=== PATIENT | female | born 1945 | race American Indian/Alaskan Native ===

== ENCOUNTER 2021-11-08 09:59 | Inpatient (IN) | payer MEDICAID, OTHER ==
--- NOTE | 2021-11-08 10:44 | Emergency Department Report ---
ED Shortness of Breath HPI - General Chief Complaint: Dyspnea/Respdistress Stated Complaint: FEVER/SOB Time Seen by Provider: 11/08/21 10:27 Source: patient, family Mode of arrival: Ambulatory Limitations: Language Barrier - History of Present Illness Initial Comments: 76-year-old female with a past medical history of hypertension presents to the hospital complaining of shortness of breath since returning from [place] 1 week ago. Patient presents with her Upper Sorbian-speaking daughter who states that she notices that patient has significant dyspnea with weakness when climbing stairs. Patient having a mild amount of left upper chest pain. Patient denies infectious symptoms of cough, fever, and is fully vaccinated for COVID. Patient had an negative Covid test prior to traveling. Patient's temperature has been afebrile at home - Related Data Allergies Allergy/AdvReac Type Severity Reaction Status Date / Time No Known Allergies Allergy Unverified 11/08/21 10:10 ED Review of Systems ROS: Stated complaint: FEVER/SOB Other details as noted in HPI Comment: All other systems reviewed and negative ED Past Medical Hx - Past Medical History Previous Medical History?: Yes Hx Hypertension: Yes - Surgical History Past Surgical History?: No - Social History Smoking Status: Never Smoker Substance Use Type: Prescribed ED Physical Exam - General Limitations: Language Barrier - Other Other exam information: General: No acute distress Head: Atraumatic Eyes: normal appearance ENT: Moist mucous membranes Neck: Normal appearance, no midline tenderness Chest: Clear to auscultation bilaterally CV: Regular rate and rhythm Abdomen: Soft, normal bowel sounds, nontender, nondistended, no rebound or guarding Back: Normal inspection Extremity: Mild right leg swelling compared to the left with right calf tenderness Neuro: Alert O x 3, no facial asymmetry, speech clear, no gross motor sensory deficit Psych: Appropriate behavior Skin: No rash ED Course Vital Signs 11/08/21 11/08/21 11/08/21 10:10 10:12 12:07 Temperature 98.3 F 98.3 F Pulse Rate 79 73 76 Respiratory 20 28 H 19 Rate Blood Pressure 169/76 169/76 O2 Sat by Pulse 99 99 98 Oximetry 11/08/21 11/08/21 11/08/21 12:16 12:30 12:45 Temperature Pulse Rate 72 72 Respiratory 14 23 Rate Blood Pressure 162/76 135/66 O2 Sat by Pulse 97 97 99 Oximetry ED Medical Decision Making - Lab Data Result diagrams: 11/08/21 11:34 11/08/21 11:34 Lab Results 11/08/21 11/08/21 11/08/21 Range/Units 11:34 11:34 11:34 WBC 5.9 (4.5-11.0) K/mm3 RBC 4.44 (3.65-5.03) M/mm3 Hgb 11.8 (10.1-14.3) gm/dl Hct 36.8 (30.3-42.9) % MCV 83 (79-97) fl MCH 27 L (28-32) pg MCHC 32 (30-34) % RDW 14.3 (13.2-15.2) % Plt Count 181 (140-440) K/mm3 Lymph % (Auto) 35.9 H (13.4-35.0) % [place] % (Auto) 13.7 H (0.0-7.3) % Eos % (Auto) 2.1 (0.0-4.3) % Baso % (Auto) 1.0 (0.0-1.8) % Lymph # (Auto) 2.1 (1.2-5.4) K/mm3 [place] # (Auto) 0.8 (0.0-0.8) K/mm3 Eos # (Auto) 0.1 (0.0-0.4) K/mm3 Baso # (Auto) 0.1 (0.0-0.1) K/mm3 Seg Neutrophils % 47.3 (40.0-70.0) % Seg Neutrophils # 2.8 (1.8-7.7) K/mm3 PT 13.4 (12.2-14.9) Sec. INR 0.92 (0.87-1.13) APTT 27.3 (24.2-36.6) Sec. D-Dimer 7876.52 H (0-234) ng/mlDDU Sodium 137 (137-145) mmol/L Potassium 3.8 (3.6-5.0) mmol/L Chloride 103.9 (98-107) mmol/L Carbon Dioxide 20 L (22-30) mmol/L Anion Gap 17 mmol/L BUN 23 H (7-17) mg/dL Creatinine 1.0 (0.6-1.2) mg/dL Estimated GFR > 60 ml/min BUN/Creatinine Ratio 23 % Glucose 104 H (65-100) mg/dL Calcium 9.6 (8.4-10.2) mg/dL Total Bilirubin 0.20 (0.1-1.2) mg/dL AST 19 (5-40) units/L ALT 17 (7-56) units/L Alkaline Phosphatase 82 (35-129) units/L Troponin T < 0.010 (0.00-0.029) ng/mL NT-Pro-B Natriuret Pep (0-900) pg/mL Total Protein 7.4 (6.3-8.2) g/dL Albumin 4.2 (3.9-5) g/dL Albumin/Globulin Ratio 1.3 % // Range/Units 11:34 WBC (4.5-11.0) K/mm3 RBC (3.65-5.03) M/mm3 Hgb (10.1-14.3) gm/dl Hct (30.3-42.9) % MCV (79-97) fl MCH (28-32) pg MCHC (30-34) % RDW (13.2-15.2) % Plt Count (140-440) K/mm3 Lymph % (Auto) (13.4-35.0) % [place] % (Auto) (0.0-7.3) % Eos % (Auto) (0.0-4.3) % Baso % (Auto) (0.0-1.8) % Lymph # (Auto) (1.2-5.4) K/mm3 [place] # (Auto) (0.0-0.8) K/mm3 Eos # (Auto) (0.0-0.4) K/mm3 Baso # (Auto) (0.0-0.1) K/mm3 Seg Neutrophils % (40.0-70.0) % Seg Neutrophils # (1.8-7.7) K/mm3 PT (12.2-14.9) Sec. INR (0.87-1.13) APTT (24.2-36.6) Sec. D-Dimer (0-234) ng/mlDDU Sodium (137-145) mmol/L Potassium (3.6-5.0) mmol/L Chloride (98-107) mmol/L Carbon Dioxide (22-30) mmol/L Anion Gap mmol/L BUN (7-17) mg/dL Creatinine (0.6-1.2) mg/dL Estimated GFR ml/min BUN/Creatinine Ratio % Glucose (65-100) mg/dL Calcium (8.4-10.2) mg/dL Total Bilirubin (0.1-1.2) mg/dL AST (5-40) units/L ALT (7-56) units/L Alkaline Phosphatase (35-129) units/L Troponin T (0.00-0.029) ng/mL NT-Pro-B Natriuret Pep 83.85 (0-900) pg/mL Total Protein (6.3-8.2) g/dL Albumin (3.9-5) g/dL Albumin/Globulin Ratio % - EKG Data -: EKG Interpreted by Dc EKG shows normal: sinus rhythm, ST-T waves (no stemi. LVH) Rate: normal (71) - Radiology Data Radiology results: report reviewed CHEST 2 VIEWS INDICATION / CLINICAL INFORMATION: sob STUDY TIME: 1125 COMPARISON: None available. FINDINGS: SUPPORT DEVICES: None. HEART / MEDIASTINUM: No significant abnormality. LUNGS / PLEURA: Slight elevation of the left hemidiaphragm is seen with slight left basilar atelectasis. No definite pneumonic infiltrates are seen. No pleural effusions are noted. No pneumothorax. ADDITIONAL FINDINGS: No significant additional findings. DUPLEX DOPPLER LOWER EXTREMITY VEINS, BILATERAL INDICATION / CLINICAL INFORMATION: right leg swelling, recent travel TECHNIQUE: Duplex doppler imaging was performed through the veins of both lower extremities using venous compression and other maneuvers. COMPARISON: None available. FINDINGS: RIGHT COMMON FEMORAL VEIN: Negative. RIGHT FEMORAL VEIN: Negative. RIGHT POPLITEAL VEIN: Nonocclusive DVT RIGHT CALF VEINS: Negative. LEFT COMMON FEMORAL VEIN: Nearly occlusive DVT LEFT FEMORAL VEIN: Negative. LEFT POPLITEAL VEIN: Nonocclusive DVT LEFT CALF VEINS: Negative. ADDITIONAL FINDINGS: Thrombosis is noted in the upper portion of the greater saphenous vein near the common femoral vein junction. IMPRESSION: Bilateral DVT CTA CHEST WITH CONTRAST INDICATION / CLINICAL INFORMATION: dyspnea on exertion, b/l dvt. TECHNIQUE: Axial CT images were obtained through the chest after injection of IV contrast. 3 plane MIP and/or 3D reconstructions were produced. All CT scans at this location are performed using CT dose reduction for ALARA by means of automated exposure control. COMPARISON: None available. FINDINGS: Filling defect within the distal left lower lung pulmonary arteries, axial image 69. Additional filling defects within the branches of the right main pulmonary artery into the right middle lobe. Several filling defects in segmental peripheral right lower lung pulmonary arteries. Mild increased interstitial prominence and densities in bilateral lungs. No focal area of consolidation. Heart size appears normal. Osteopenia with degenerative changes seen throughout spine IMPRESSION: 1. Bilateral PTE's 2. Mild interstitial prominence in bilateral lungs - Medical Decision Making 76-year-old female presents to the hospital with dyspnea on exertion with recent trip from [facility]. ED work-up reveals bilateral lower extremity DVTs and bilateral pulmonary emboli. No signs of hypoxia at rest. Patient received Lovenox and admitted to the hospital service for further treatment. Critical Care Time: No Critical care attestation.: If time is entered above; I have spent that time in minutes in the direct care of this critically ill patient, excluding procedure time. ED Disposition Clinical Impression: DVT, bilateral lower limbs, Pulmonary embolism, bilateral, Dyspnea Disposition: ADMITTED INPATIENT Is pt being admited?: Yes Condition: Stable Time of Disposition: 14:08 (DR Buchanan)
[2021-11-08] MEDS ORDERED: ENOXAPARIN 100 MG/1 ML INJ SUB-Q ONE (11:40)
--- NOTE | 2021-11-08 11:45 | Vascular Lab Report ---
DUPLEX DOPPLER LOWER EXTREMITY VEINS, BILATERAL INDICATION / CLINICAL INFORMATION: right leg swelling, recent travel TECHNIQUE: Duplex doppler imaging was performed through the veins of both lower extremities using rodríguez ous compression and other maneuvers. COMPARISON: None available. FINDINGS: RIGHT COMMON FEMORAL VEIN: Negative. RIGHT FEMORAL VEIN: Negative. RIGHT POPLITEAL VEIN: Nonocclusive DVT RIGHT CALF VEINS: Negative. LEFT COMMON FEMORAL VEIN: Nearly occlusive DVT LEFT FEMORAL VEIN: Negative. LEFT POPLITEAL VEIN: Nonocclusive DVT LEFT CALF VEINS: Negative. ADDITIONAL FINDINGS: Thrombosis is noted in the upper portion of the greater saphenous vein near the common femoral vein junction. IMPRESSION: Bilateral DVT CRITICAL RESULT: Time of Discovery (TRENCH PIPE LAYER HELPER/CDT): 1035 Time of Communication (TRENCH PIPE LAYER HELPER/CDT): 1038 Licensed Practitioner Receiving Report: Dr. Daniella Celaya Read-Back Performed: Not applicable. Signer Name: Wellington Terry MD Signed: 11/08/2021 11:40 AM Workstation Name: [id number]
--- NOTE | 2021-11-08 11:51 | XRay Report ---
CHEST 2 VIEWS INDICATION / CLINICAL INFORMATION: sob STUDY TIME: 1125 COMPARISON: None available. FINDINGS: SUPPORT DEVICES: None. HEART / MEDIASTINUM: No significant abnormality. LUNGS / PLEURA: Slight elevation of the left hemidiaphragm is seen with slight left basilar atelectas is. No definite pneumonic infiltrates are seen. No pleural effusions are noted. No pneumothorax. ADDITIONAL FINDINGS: No significant additional findings. Signer Name: Wellington Terry MD Signed: 11/08/2021 11:46 AM Workstation Name: [id number]
[2021-11-08 12:09] LABS: Basophils # (Auto) 0.1 K/mm3 (0.0-0.1); Eosinophils # (Auto) 0.1 K/mm3 (0.0-0.4); Eosinophils % (Auto) 2.1 % (0.0-4.3); Lymphocytes # (Auto) 2.1 K/mm3 (1.2-5.4); Lymphocytes % (Auto) 35.9 % (13.4-35.0); Monocytes # (Auto) 0.8 K/mm3 (0.0-0.8); Monocytes % (Auto) 13.7 % (0.0-7.3)
[2021-11-08 12:17] LABS: INR 0.92 (0.87-1.13)
[2021-11-08 12:18] LABS: Partial Thromboplastin Time 27.3 Sec. (24.2-36.6)
[2021-11-08 12:33] LABS: Alanine Aminotransferase 17 units/L (7-56); Albumin 4.2 g/dL (3.9-5); BUN/Creatinine Ratio 23; Blood Urea Nitrogen 23 mg/dL (7-17); Calcium 9.6 mg/dL (8.4-10.2); Hemolysis Index 9
[2021-11-08 12:38] LABS: Hematocrit 36.8 % (30.3-42.9); Hemoglobin 11.8 gm/dl (10.1-14.3); Mean Corpuscular HGB Conc 32 % (30-34); Mean Corpuscular Volume 83 fl (79-97); Platelet Count 181 K/mm3 (140-440); Red Blood Count 4.44 M/mm3 (3.65-5.03); Red Cell Distribution Width 14.3 % (13.2-15.2)
--- NOTE | 2021-11-08 14:10 | Cat Scan Report ---
CTA CHEST WITH CONTRAST INDICATION / CLINICAL INFORMATION: dyspnea on exertion, b/l dvt. TECHNIQUE: Axial CT images were obtained through the chest after injection of IV contrast. 3 plane [place] P and/or 3D reconstructions were produced. All CT scans at this location are performed using CT dose reduction for ALARA by means of automated exposure control. COMPARISON: None available. FINDINGS: Filling defect within the distal left lower lung pulmonary arteries, axial image 69. Additional filli ng defects within the branches of the right main pulmonary artery into the right middle lobe. Several filling defects in segmental peripheral right lower lung pulmonary arteries. Mild increased intersti tial prominence and densities in bilateral lungs. No focal area of consolidation. Heart size appears normal. Osteopenia with degenerative changes seen throughout spine IMPRESSION: 1. Bilateral PTE's 2. Mild interstitial prominence in bilateral lungs CRITICAL RESULT: Time of Discovery (COORDINATOR OF GENETIC SERVICES/CDT): 104 Time of Communication (COORDINATOR OF GENETIC SERVICES/CDT): 104 Licensed Practitioner Receiving Report: Yomi Read-Back Performed: Yes. Signer Name: Ganesh Guaman MD Signed: 11/08/2021 2:05 PM Workstation Name: [id number]
[2021-11-08] MEDS ORDERED: MORPHINE 2 MG/1 ML INJ IV PRN (17:17)
[2021-11-08] MEDS ORDERED: HYDROmorphone 1 MG/1 ML INJ IV PRN (17:17)
[2021-11-08] MEDS ORDERED: ONDANSETRON 4 MG/2 ML INJ IV PRN (17:17)
[2021-11-08] MEDS ORDERED: ACETAMINOPHEN 325 MG TAB PO PRN (17:17)
[2021-11-08] MEDS ORDERED: METOCLOPRAMIDE 10 MG/2 ML INJ IV PRN (17:17)
[2021-11-08] MEDS ORDERED: HEPARIN 10,000 UNITS/10 ML VIAL IV PRN (17:20)
[2021-11-08] MEDS ORDERED: HEPARIN 10,000 UNITS/10 ML VIAL IV ONE (17:20)
[2021-11-08] MEDS: oxyCODONE /ACETAMINOPHEN 5-325MG TAB PO PRN (18:01)
[2021-11-08] MEDS: HEPARIN/ 0.45% NACL DRIP 25,000 UNIT/500 ML BAG IV SCH (18:11)
[2021-11-08] MEDS: SODIUM CHLORIDE 0.9% 1000 ML 1,000 ML IV SCH (18:28)
--- NOTE | 2021-11-09 00:09 | History and Physical Report ---
History of Present Illness Date of examination: 11/08/21 Date of admission: 11/08/21 17:17 Chief complaint: Shortness of breath for 1 week History of present illness: 76-year-old -[place]ian female with history of hypertension, who cannot speak Frisian was recently traveling from [facility] 1 week ago. Patient is present with significant dyspnea and weakness when climbing stairs. Patient also has mild chest pain. Patient also having lower extremity discomfort. Patient had a negative Covid test prior to travel. Patient was sitting for long hours from [facility] to [place]. No previous history of pulmonary embolism or DVT. - Past Medical History --Previous Medical History?: Yes --Hypertension: Yes - Surgical History --Past Surgical History?: No - Social History --Smoking Status: Never Smoker --Substance Use Type: Prescribed -Family history -- HTN -Review of Systems -ROS: Constitutional no weight loss or weight gain no fever or chills HEENT no sore throat no post nasal drip no diplopia Neck no neck stiffness no lymph gland enlargement Chest and lungs shortness of breath and bilateral lower extremity pain present CVS no chest pain no diaphoresis no palpitations GI no nausea no vomiting no diarrhea Genitourinary system no dysuria no flank pain Musculoskeletal system bilateral lower extremity pain present MANAGER MANAGEMENT no syncope no seizures Skin no rash no itching Psychiatric no depression no homicidal or suicidal tendencies Hematologic no lymphedema or bruising Endocrine no polydipsia no polyuria no cold intolerance no heat intolerance Medications and Allergies Allergies Allergy/AdvReac Type Severity Reaction Status Date / Time No Known Allergies Allergy Unverified 11/08/21 10:10 Active Meds: Active Medications Acetaminophen (Acetaminophen 325 Mg Tab) 650 mg PO Q4H PRN PRN Reason: Pain MILD(1-3)/Fever >100.5/CURTIS Heparin Sodium (Porcine) (Heparin 10,000 Units/10 Ml Vial) 3,100 unit 40 uni t/kg (3100 unit) IV Q6H PRN PRN Reason: Anti-Xa Assay < 0.1 units/ml Hydromorphone HCl (Hydromorphone 1 Mg/1 Ml Inj) 0.5 mg IV Q3H PRN PRN Reason: Pain , Severe (7-10) Sodium Chloride (Nacl 0.9% 1000 Ml) 1,000 mls @ 100 mls/hr IV DIRECT EULA Last Admin: 11/08/21 18:28 Dose: 100 mls/hr Heparin Sodium/Sodium Chloride (Heparin/ 0.45% Nacl-25,000 Unit/500 Ml) 25,000 unit in 500 mls @ 23 mls/hr IV TITR [facility]; Protocol Last Admin: 11/08/21 18:11 Dose: 1,150 units/hr, 23 mls/hr Metoclopramide HCl (Metoclopramide 10 Mg/2 Ml Inj) 10 mg IV Q6H PRN PRN Reason: Nausea And Vomiting Morphine Sulfate (Morphine 2 Mg/1 Ml Inj) 2 mg IV Q4H PRN PRN Reason: Pain, Moderate (4-6) Ondansetron HCl (Ondansetron 4 Mg/2 Ml Inj) 4 mg IV Q8H PRN PRN Reason: Nausea And Vomiting Oxycodone/Acetaminophen (Oxycodone /Acetaminophen 5-325mg Tab) 1 tab PO Q6H PRN PRN Reason: Pain, Moderate (4-6) Last Admin: 11/08/21 18:01 Dose: 1 tab Sodium Chloride (Sodium Chloride 0.9% 10 Ml Flush Syringe) 10 ml IV BID [facility] Last Admin: 11/08/21 22:49 Dose: 10 ml Sodium Chloride (Sodium Chloride 0.9% 10 Ml Flush Syringe) 10 ml IV PRN PRN PRN Reason: LINE FLUSH Exam - Constitutional Vitals: Temp Pulse Resp BP Pulse Ox 98.3 F 69 19 132/59 94 11/08/21 10:12 11/08/21 21:31 11/08/21 21:31 11/08/21 21:31 11/08/21 21:31 General appearance: Present: no acute distress, well-nourished - EENT Eyes: Present: PERRL ENT: hearing intact, clear oral mucosa - Neck Neck: Present: supple, normal ROM - Respiratory Respiratory effort: normal Respiratory: bilateral: CTA - Cardiovascular Heart rate: 98 Rhythm: regular Heart Sounds: Present: S1 & S2. Absent: rub, click - Extremities Extremities: no ischemia, pulses intact, pulses symmetrical, No edema Peripheral Pulses: within normal limits - Abdominal General gastrointestinal: Present: soft, non-tender, non-distended, normal bowel sounds Female genitourinary: Present: normal - Integumentary Integumentary: Present: clear, warm, dry - Musculoskeletal Musculoskeletal: gait normal, strength equal bilaterally - Psychiatric Psychiatric: appropriate mood/affect, intact judgment & insight - Neurologic Neurologic: CNII-XII intact, moves all extremities - Allied Health Allied health notes reviewed: nursing, case management HEART Score - HEART Score History: Slightly suspicious Age: > 65 Risk factors: 1-2 risk factors Troponin: Troponin T < 0.010 ng/mL (0.00-0.029) 11/08/21 16:21 Troponin: < normal limit - Critical Actions Critical Actions: 0-3 pts:0.9-1.7%risk of adverse cardiac event.Candidate for discharge Results - Labs CBC & Chem 7: 11/09/21 02:21 11/09/21 02:21 Labs: Laboratory Last Values WBC 5.9 K/mm3 (4.5-11.0) 11/08/21 11:34 RBC 4.44 M/mm3 (3.65-5.03) 11/08/21 11:34 Hgb 11.8 gm/dl (10.1-14.3) 11/08/21 11:34 Hct 36.8 % (30.3-42.9) 11/08/21 11:34 MCV 83 fl (79-97) 11/08/21 11:34 MCH 27 pg (28-32) L 11/08/21 11:34 MCHC 32 % (30-34) 11/08/21 11:34 RDW 14.3 % (13.2-15.2) 11/08/21 11:34 Plt Count 181 K/mm3 (140-440) 11/08/21 11:34 Lymph % (Auto) 35.9 % (13.4-35.0) H 11/08/21 11:34 [place] % (Auto) 13.7 % (0.0-7.3) H 11/08/21 11:34 Eos % (Auto) 2.1 % (0.0-4.3) 11/08/21 11:34 Baso % (Auto) 1.0 % (0.0-1.8) 11/08/21 11:34 Lymph # (Auto) 2.1 K/mm3 (1.2-5.4) 11/08/21 11:34 [place] # (Auto) 0.8 K/mm3 (0.0-0.8) 11/08/21 11:34 Eos # (Auto) 0.1 K/mm3 (0.0-0.4) 11/08/21 11:34 Baso # (Auto) 0.1 K/mm3 (0.0-0.1) 11/08/21 11:34 Seg Neutrophils % 47.3 % (40.0-70.0) 11/08/21 11:34 Seg Neutrophils # 2.8 K/mm3 (1.8-7.7) 11/08/21 11:34 PT 13.4 Sec. (12.2-14.9) 11/08/21 11:34 INR 0.92 (0.87-1.13) 11/08/21 11:34 APTT 27.3 Sec. (24.2-36.6) 11/08/21 11:34 D-Dimer 7876.52 ng/mlDDU (0-234) H 11/08/21 11:34 Sodium 137 mmol/L (137-145) 11/08/21 11:34 Potassium 3.8 mmol/L (3.6-5.0) 11/08/21 11:34 Chloride 103.9 mmol/L (98-107) 11/08/21 11:34 Carbon Dioxide 20 mmol/L (22-30) L 11/08/21 11:34 Anion Gap 17 mmol/L 11/08/21 11:34 BUN 23 mg/dL (7-17) H 11/08/21 11:34 Creatinine 1.0 mg/dL (0.6-1.2) 11/08/21 11:34 Estimated GFR > 60 ml/min 11/08/21 11:34 BUN/Creatinine Ratio 23 % 11/08/21 11:34 Glucose 104 mg/dL (65-100) H 11/08/21 11:34 Calcium 9.6 mg/dL (8.4-10.2) 11/08/21 11:34 Total Bilirubin 0.20 mg/dL (0.1-1.2) 11/08/21 11:34 AST 19 units/L (5-40) 11/08/21 11:34 ALT 17 units/L (7-56) 11/08/21 11:34 Alkaline Phosphatase 82 units/L (35-129) 11/08/21 11:34 Troponin T < 0.010 ng/mL (0.00-0.029) 11/08/21 16:21 NT-Pro-B Natriuret Pep 83.85 pg/mL (0-900) 11/08/21 11:34 Total Protein 7.4 g/dL (6.3-8.2) 11/08/21 11:34 Albumin 4.2 g/dL (3.9-5) 11/08/21 11:34 Albumin/Globulin Ratio 1.3 % 11/08/21 11:34 Short CBC 11/08/21 11/09/21 Range/Units 11:34 02:21 WBC 5.9 6.3 (4.5-11.0) K/mm3 Hgb 11.8 11.5 (10.1-14.3) gm/dl Hct 36.8 35.4 (30.3-42.9) % Plt Count 181 202 (140-440) K/mm3 BMP 11/08/21 11/09/21 11:34 02:21 Sodium 137 138 Potassium 3.8 4.5 Chloride 103.9 101.1 Carbon Dioxide 20 L 23 BUN 23 H 21 H Creatinine 1.0 1.0 Glucose 104 H 149 H Calcium 9.6 9.6 Cardiac Enzymes 11/08/21 11/08/21 11/08/21 Range/Units 11:34 13:59 16:21 Troponin T < 0.010 < 0.010 < 0.010 (0.00-0.029) ng/mL Liver Function 11/08/21 11/09/21 Range/Units 11:34 02:21 Total Bilirubin 0.20 0.20 (0.1-1.2) mg/dL AST 19 17 (5-40) units/L ALT 17 15 (7-56) units/L Alkaline Phosphatase 82 77 (35-129) units/L Albumin 4.2 3.8 L (3.9-5) g/dL - Imaging and Cardiology EKG: report reviewed Imaging and Cardiology: Chest x-ray No significant radiation findings Duplex scan lower extremities-venous Thrombosis is noted of the upper portion of the greater saphenous vein near the common femoral vein junction Bilateral DVT Chest CTA Findings filling defect in the distal left lower lung pulmonary arteries, axial image 69. Additional filling defects within the branches of the right main pulmonary artery into the right middle lobe. Severe filling defects in segmental periphery of the right lower lung pulmonary arteries. Mild increased interstitial prominence and densities in bilateral lungs. No focal area of disc consolidation. Right ventricular drain was not mentioned by the radiology. Final impression Bilateral PEs Mild interstitial prominence in bilateral lungs. Assessment and Plan Advance Directives: Yes (Full code) VTE prophylaxis?: Chemical Plan of care discussed with patient/family: Yes - Patient Problems (1) Pulmonary embolism, bilateral Current Visit: Yes Status: Acute Plan to address problem: Bilateral pulmonary embolism involving peripheral pulmonary branches. No main pulmonary artery involvement Patient may not be a candidate for EKOS Vascular surgery/IR consulted for second opinion IV heparin as per protocol for now To be transitioned to Eliquis (2) DVT, bilateral lower limbs Current Visit: Yes Status: Acute Plan to address problem: Bilateral lower extremity DVT especially in upper saphenous vein region near the femoral vein IV heparin as per protocol. We will bridged to Eliquis. Vascular/IR consulted (3) Elevated d-dimer Current Visit: Yes Status: Acute Plan to address problem: D-dimer in 7000 Consistent with PE and DVT (4) Hypertension Current Visit: Yes Status: Chronic Qualifiers: Hypertension type: primary hypertension Qualified Code(s): I10 - Essential (primary) hypertension Plan to address problem: Continue antihypertensives and adjust medications as necessary (5) DVT prophylaxis Current Visit: Yes Status: Acute Plan to address problem: On heparin drip and GI prophylaxis (6) Advance care planning Current Visit: Yes Status: Acute Plan to address problem: Discussed with daughter was at the bedside about disease education care plan plan discussed. Diagnosis discussed. Prognosis discussed. Patient is full code. Patient acknowledges understanding and agreement with care plan along with the daughter. +30 minutes.
[2021-11-09 02:25] LABS: Basophils # (Auto) 0.1 K/mm3 (0.0-0.1); Basophils % (Auto) 1.1 % (0.0-1.8); Eosinophils # (Auto) 0.2 K/mm3 (0.0-0.4); Eosinophils % (Auto) 2.6 % (0.0-4.3); Hematocrit 35.4 % (30.3-42.9); Hemoglobin 11.5 gm/dl (10.1-14.3); Lymphocytes # (Auto) 2.8 K/mm3 (1.2-5.4); Lymphocytes % (Auto) 44.4 % (13.4-35.0); Mean Corpuscular HGB Conc 32 % (30-34); Mean Corpuscular Volume 82 fl (79-97); Monocytes # (Auto) 0.7 K/mm3 (0.0-0.8); Monocytes % (Auto) 11.5 % (0.0-7.3); Platelet Count 202 K/mm3 (140-440); Red Blood Count 4.31 M/mm3 (3.65-5.03); Red Cell Distribution Width 14.9 % (13.2-15.2)
[2021-11-09 02:48] LABS: Alanine Aminotransferase 15 units/L (7-56); Albumin 3.8 g/dL (3.9-5); BUN/Creatinine Ratio 21; Blood Urea Nitrogen 21 mg/dL (7-17); Calcium 9.6 mg/dL (8.4-10.2); Hemolysis Index 4
[2021-11-09 04:31] LABS: INR 1.05 (0.87-1.13)
[2021-11-09 05:08] LABS: Partial Thromboplastin Time 229.7 Sec. (24.2-36.6)
[2021-11-09] MEDS: SODIUM CHLORIDE 0.9% 1000 ML 1,000 ML IV SCH ×2 (05:46→16:36)
[2021-11-09] MEDS: HEPARIN/ 0.45% NACL DRIP 25,000 UNIT/500 ML BAG IV SCH ×2 (05:49→22:46)
--- NOTE | 2021-11-09 09:34 | Electrocardiograph Report ---
[facility] Test Date: 2021-11-08 Test Time: 12:37:15 Pat Name: MARC ROBB Department: Room: A483 Gender: F Terrestrial Ecologist: JULIAN : 1945 Requested By: STEVE SOMMERS Order Number: [id number] Reading MD: Dorothy Garrido Measurements Intervals [place] Rate: 71 P: 59 MD: 151 QRS: 3 QRSD: 75 T: 48 QT: 409 QTc: 445 Interpretive Statements Sinus rhythm Probable left atrial enlargement Probable left ventricular hypertrophy No previous ECG available for comparison Electronically Signed On 11-09-2021 9:34:28 EDT by Dorothy Garrido
--- NOTE | 2021-11-09 13:19 | Event Note ---
Date: 11/09/21 76 year old female who presents with thromboembolic events with PE and LLE DVT. LLE has a L CFV and L popliteal vein DVT. PE demonstrates some segmental PE. BNP and troponin are negative. RV/LV ratio is 1.1, but the main pulmonary artery measures 3.4 cm compatible with chronic pulmonary hypertension. Suspect RV/LV ratio is chronic given the small amount of PE with findings of chronic pulmonary hypertension. Recommend anticoagulation. Will evaluate tomorrow to assess symptoms of the left leg to see if patient would benefit from thrombectomy.
--- NOTE | 2021-11-09 19:09 | Progress Note ---
Assessment and Plan Assessment and plan: Bilateral lower extremity venous Doppler ;right popliteal vein nonocclusive DVT left popliteal vein nonocclusive DVT thrombosis is noted in the upper portion of the greater saphenous vein near the common femoral vein junction impression bilateral DVT Chest CTA; Findings filling defect in the distal left lower lung pulmonary arteries, axial image 69. Additional filling defects within the branches of the right main pulmonary artery into the right middle lobe. Severe filling defects in segmental periphery of the right lower lung pulmonary arteries. Mild increased interstitial prominence and densities in bilateral lungs. No focal area of disc consolidation., Right ventricular drain was not mentioned by the radiology. Final impression: Bilateral PEs -- Pulmonary embolism, bilateral Current Visit: Yes Status: Acute Bilateral pulmonary embolism involving peripheral pulmonary branches. No main pulmonary artery involvement Vascular evaluated the patient, no intervention at this point Continue IV heparin per ,, transition to Eliquis when medically stable Patient has no hypoxia, follow echocardiogram for LV and RV function ejection fraction --Bilateral lower extremity DVT: Current Visit: Yes Status: Acute Bilateral lower extremity DVT especially in upper saphenous vein region near the femoral vein Continue IV heparin per protocol, transition to Eliquis when patient is more stable Vascular evaluated the patient, no intervention at this point ==Elevated d-dimer; Current Visit: Yes Status: Acute D-dimer in 7000/bilateral PE bilateral DVT -- Hypertension Current Visit: Yes Status: Chronic Continue antihypertensives and adjust medications as necessary --DVT prophylaxis Current Visit: Yes Status: Acute Patient is already on heparin drip and GI prophylaxis --Advance care planning Current Visit: Yes Status: Acute Plan to address problem: Discussed with daughter was at the bedside 11/08/2021 /about disease education care plan plan discussed. Diagnosis discussed. Prognosis discussed. Patient is full code. Patient acknowledges understanding and agreement with care plan along with the daughter. +30 minutes. We will closely monitor the patient and adjust management as needed Plan of care reviewed with the patient and her nurse Monitor Tech recommendations noted and appreciated History Interval history: I have seen and examined the patient at the bedside Patient's chart and medications reviewed Patient feels slightly better mild shortness of breath intermittent Denies chest pain Vital signs reviewed Patient is on heparin drip Not on supplemental oxygen Hospitalist Physical - Constitutional Vitals: Temp Pulse Resp BP Pulse Ox 99.0 F 104 H 18 146/75 99 11/09/21 16:29 11/09/21 17:00 11/09/21 16:29 11/09/21 16:29 11/09/21 17:00 General appearance: Present: no acute distress, well-nourished - EENT Eyes: Present: PERRL, EOM intact - Neck Neck: Present: supple, normal ROM - Respiratory Respiratory effort: normal Respiratory: bilateral: diminished, rhonchi, negative: rales, wheezing - Cardiovascular Rhythm: regular Heart Sounds: Present: S1 & S2 - Extremities Extremities: no ischemia, abnormal (Left lower extremity swelling/DVT) - Abdominal General gastrointestinal: soft, non-tender, non-distended, normal bowel sounds - Integumentary Integumentary: Present: clear, warm, erythema - Psychiatric Psychiatric: appropriate mood/affect, cooperative - Neurologic Neurologic: moves all extremities HEART Score - HEART Score Age: > 65 Risk factors: 1-2 risk factors Troponin: Troponin T < 0.010 ng/mL (0.00-0.029) 11/08/21 16:21 Troponin: < normal limit - Critical Actions Critical Actions: 0-3 pts:0.9-1.7%risk of adverse cardiac event.Candidate for discharge Results - Labs CBC & Chem 7: 11/09/21 02:21 11/09/21 02:21 Labs: Laboratory Last Values WBC 6.3 K/mm3 (4.5-11.0) 11/09/21 02:21 RBC 4.31 M/mm3 (3.65-5.03) 11/09/21 02:21 Hgb 11.5 gm/dl (10.1-14.3) 11/09/21 02:21 Hct 35.4 % (30.3-42.9) 11/09/21 02:21 MCV 82 fl (79-97) 11/09/21 02:21 MCH 27 pg (28-32) L 11/09/21 02:21 MCHC 32 % (30-34) 11/09/21 02:21 RDW 14.9 % (13.2-15.2) 11/09/21 02:21 Plt Count 202 K/mm3 (140-440) 11/09/21 02:21 Lymph % (Auto) 44.4 % (13.4-35.0) H 11/09/21 02:21 [place] % (Auto) 11.5 % (0.0-7.3) H 11/09/21 02:21 Eos % (Auto) 2.6 % (0.0-4.3) 11/09/21 02:21 Baso % (Auto) 1.1 % (0.0-1.8) 11/09/21 02:21 Lymph # (Auto) 2.8 K/mm3 (1.2-5.4) 11/09/21 02:21 [place] # (Auto) 0.7 K/mm3 (0.0-0.8) 11/09/21 02:21 Eos # (Auto) 0.2 K/mm3 (0.0-0.4) 11/09/21 02:21 Baso # (Auto) 0.1 K/mm3 (0.0-0.1) 11/09/21 02:21 Seg Neutrophils % 40.4 % (40.0-70.0) 11/09/21 02:21 Seg Neutrophils # 2.6 K/mm3 (1.8-7.7) 11/09/21 02:21 PT 14.9 Sec. (12.2-14.9) 11/09/21 01:16 INR 1.05 (0.87-1.13) 11/09/21 01:16 APTT 229.7 Sec. (24.2-36.6) H* 11/09/21 01:16 D-Dimer 7876.52 ng/mlDDU (0-234) H 11/08/21 11:34 Heparin Anti-Xa Level 1.12 U.I./ml (0.3-0.7) H 11/09/21 10:48 Sodium 138 mmol/L (137-145) 11/09/21 02:21 Potassium 4.5 mmol/L (3.6-5.0) 11/09/21 02:21 Chloride 101.1 mmol/L (98-107) 11/09/21 02:21 Carbon Dioxide 23 mmol/L (22-30) 11/09/21 02:21 Anion Gap 18 mmol/L 11/09/21 02:21 BUN 21 mg/dL (7-17) H 11/09/21 02:21 Creatinine 1.0 mg/dL (0.6-1.2) 11/09/21 02:21 Estimated GFR > 60 ml/min 11/09/21 02:21 BUN/Creatinine Ratio 21 % 11/09/21 02:21 Glucose 149 mg/dL (65-100) H 11/09/21 02:21 POC Glucose 121 mg/dL (70-105) H 11/09/21 08:02 Calcium 9.6 mg/dL (8.4-10.2) 11/09/21 02:21 Total Bilirubin 0.20 mg/dL (0.1-1.2) 11/09/21 02:21 AST 17 units/L (5-40) 11/09/21 02:21 ALT 15 units/L (7-56) 11/09/21 02:21 Alkaline Phosphatase 77 units/L (35-129) 11/09/21 02:21 Troponin T < 0.010 ng/mL (0.00-0.029) 11/08/21 16:21 NT-Pro-B Natriuret Pep 83.85 pg/mL (0-900) 11/08/21 11:34 Total Protein 7.2 g/dL (6.3-8.2) 11/09/21 02:21 Albumin 3.8 g/dL (3.9-5) L 11/09/21 02:21 Albumin/Globulin Ratio 1.1 % 11/09/21 02:21 Mehta/IV: Voiding Method External Female Catheter Active Medications - Current Medications Current Medications: Generic Name Dose Route Start Last Admin Trade Name Freq PRN Reason Stop Dose Admin Acetaminophen 650 mg 11/08/21 17:17 Acetaminophen 325 Mg Tab PO Q4H PRN Pain MILD(1-3)/Fever >100.5/CURTIS Heparin Sodium (Porcine) 3,100 unit 11/08/21 17:20 Heparin 10,000 Units/10 Ml Vial 40 unit/kg (3100 unit) IV Q6H PRN Anti-Xa Assay < 0.1 units/ml Hydromorphone HCl 0.5 mg 11/08/21 17:17 Hydromorphone 1 Mg/1 Ml Inj IV Q3H PRN Pain , Severe (7-10) Sodium Chloride 1,000 mls @ 100 mls/hr 11/08/21 17:30 11/09/21 16:36 Nacl 0.9% 1000 Ml IV 100 mls/hr DIRECT EULA Administration Heparin Sodium/Sodium Chloride 25,000 unit in 500 mls @ 23 mls/hr 11/08/21 18:00 11/09/21 14:48 Heparin/ 0.45% Nacl-25,000 Unit/500 Ml IV 1,000 units/hr TITR EULA 20 mls/hr Titration Protocol 1,150 UNITS/HR Metoclopramide HCl 10 mg 11/08/21 17:17 Metoclopramide 10 Mg/2 Ml Inj IV Q6H PRN Nausea And Vomiting Morphine Sulfate 2 mg 11/08/21 17:17 Morphine 2 Mg/1 Ml Inj IV Q4H PRN Pain, Moderate (4-6) Ondansetron HCl 4 mg 11/08/21 17:17 Ondansetron 4 Mg/2 Ml Inj IV Q8H PRN Nausea And Vomiting Oxycodone/Acetaminophen 1 tab 11/08/21 17:17 11/08/21 18:01 Oxycodone /Acetaminophen 5-325mg Tab PO 1 tab Q6H PRN Administration Pain, Moderate (4-6) Sodium Chloride 10 ml 11/08/21 22:00 11/09/21 12:29 Sodium Chloride 0.9% 10 Ml Flush Syringe IV 10 ml BID EULA Administration Sodium Chloride 10 ml 11/08/21 17:17 Sodium Chloride 0.9% 10 Ml Flush Syringe IV PRN PRN LINE FLUSH
[2021-11-09] MEDS: oxyCODONE /ACETAMINOPHEN 5-325MG TAB PO PRN (21:56)
[2021-11-10] MEDS: SODIUM CHLORIDE 0.9% 1000 ML 1,000 ML IV SCH ×2 (02:50→13:11)
[2021-11-10 05:13] LABS: Hematocrit 33.7 % (30.3-42.9); Hemoglobin 10.7 gm/dl (10.1-14.3)
--- NOTE | 2021-11-10 09:19 | Progress Note ---
Assessment and Plan Assessment and plan: Bilateral lower extremity venous Doppler ;right popliteal vein nonocclusive DVT left popliteal vein nonocclusive DVT thrombosis is noted in the upper portion of the greater saphenous vein near the common femoral vein junction impression bilateral DVT Chest CTA; Findings filling defect in the distal left lower lung pulmonary arteries, axial image 69. Additional filling defects within the branches of the right main pulmonary artery into the right middle lobe. Severe filling defects in segmental periphery of the right lower lung pulmonary arteries. Mild increased interstitial prominence and densities in bilateral lungs. No focal area of disc consolidation., Right ventricular drain was not mentioned by the radiology. Final impression: Bilateral PEs -- Pulmonary embolism, bilateral Current Visit: Yes Status: Acute Bilateral pulmonary embolism involving peripheral pulmonary branches. No main pulmonary artery involvement Vascular evaluated the patient, no intervention at this point Continue IV heparin per ,, transition to Eliquis when medically stable Patient has no hypoxia, follow echocardiogram for LV and RV function ejection fraction --Bilateral lower extremity DVT: Current Visit: Yes Status: Acute Bilateral lower extremity DVT especially in upper saphenous vein region near the femoral vein Continue IV heparin per protocol, transition to Eliquis when patient is more stable Vascular evaluated the patient, no intervention at this point ==Elevated d-dimer; Current Visit: Yes Status: Acute D-dimer in 7000/bilateral PE bilateral DVT -- Hypertension Current Visit: Yes Status: Chronic Continue antihypertensives and adjust medications as necessary --DVT prophylaxis Current Visit: Yes Status: Acute Patient is already on heparin drip and GI prophylaxis --Advance care planning Current Visit: Yes Status: Acute Plan to address problem: Discussed with daughter was at the bedside 11/08/2021 /about disease education care plan plan discussed. Diagnosis discussed. Prognosis discussed. Patient is full code. Patient acknowledges understanding and agreement with care plan along with the daughter. +30 minutes. We will closely monitor the patient and adjust management as needed Plan of care reviewed with the patient and her nurse Substation Wireman recommendations noted and appreciated History Interval history: I have seen and examined the patient at the bedside Patient's chart and medications reviewed No new events reported by the nursing Vital signs stable Hospitalist Physical - Constitutional Vitals: Temp Pulse Resp BP Pulse Ox 98.3 F 81 16 152/86 96 11/10/21 08:22 11/10/21 08:22 11/10/21 08:22 11/10/21 08:22 11/10/21 08:22 General appearance: Present: no acute distress, well-nourished - EENT Eyes: Present: PERRL, EOM intact - Neck Neck: Present: supple, normal ROM - Respiratory Respiratory effort: normal Respiratory: bilateral: diminished, rhonchi, negative: rales, wheezing - Cardiovascular Rhythm: regular Heart Sounds: Present: S1 & S2 - Extremities Extremities: no ischemia, No edema - Abdominal General gastrointestinal: soft, non-tender, non-distended, normal bowel sounds - Integumentary Integumentary: Present: clear, warm - Psychiatric Psychiatric: appropriate mood/affect, cooperative - Neurologic Neurologic: moves all extremities HEART Score - HEART Score Age: > 65 Risk factors: 1-2 risk factors Troponin: Troponin T < 0.010 ng/mL (0.00-0.029) 11/08/21 16:21 Troponin: < normal limit - Critical Actions Critical Actions: 0-3 pts:0.9-1.7%risk of adverse cardiac event.Candidate for discharge Results - Labs CBC & Chem 7: 11/11/21 15:04 11/11/21 15:04 Labs: Laboratory Last Values WBC 6.3 K/mm3 (4.5-11.0) 11/09/21 02:21 RBC 4.31 M/mm3 (3.65-5.03) 11/09/21 02:21 Hgb 10.7 gm/dl (10.1-14.3) 11/10/21 04:45 Hct 33.7 % (30.3-42.9) 11/10/21 04:45 MCV 82 fl (79-97) 11/09/21 02:21 MCH 27 pg (28-32) L 11/09/21 02:21 MCHC 32 % (30-34) 11/09/21 02:21 RDW 14.9 % (13.2-15.2) 11/09/21 02:21 Plt Count 212 K/mm3 (140-440) 11/10/21 04:45 Lymph % (Auto) 44.4 % (13.4-35.0) H 11/09/21 02:21 [place] % (Auto) 11.5 % (0.0-7.3) H 11/09/21 02:21 Eos % (Auto) 2.6 % (0.0-4.3) 11/09/21 02:21 Baso % (Auto) 1.1 % (0.0-1.8) 11/09/21 02:21 Lymph # (Auto) 2.8 K/mm3 (1.2-5.4) 11/09/21 02:21 [place] # (Auto) 0.7 K/mm3 (0.0-0.8) 11/09/21 02:21 Eos # (Auto) 0.2 K/mm3 (0.0-0.4) 11/09/21 02:21 Baso # (Auto) 0.1 K/mm3 (0.0-0.1) 11/09/21 02:21 Seg Neutrophils % 40.4 % (40.0-70.0) 11/09/21 02:21 Seg Neutrophils # 2.6 K/mm3 (1.8-7.7) 11/09/21 02:21 PT 14.9 Sec. (12.2-14.9) 11/09/21 01:16 INR 1.05 (0.87-1.13) 11/09/21 01:16 APTT 229.7 Sec. (24.2-36.6) H* 11/09/21 01:16 D-Dimer 7876.52 ng/mlDDU (0-234) H 11/08/21 11:34 Heparin Anti-Xa Level 0.69 U.I./ml (0.3-0.7) 11/09/21 18:40 Sodium 138 mmol/L (137-145) 11/09/21 02:21 Potassium 4.5 mmol/L (3.6-5.0) 11/09/21 02:21 Chloride 101.1 mmol/L (98-107) 11/09/21 02:21 Carbon Dioxide 23 mmol/L (22-30) 11/09/21 02:21 Anion Gap 18 mmol/L 11/09/21 02:21 BUN 21 mg/dL (7-17) H 11/09/21 02:21 Creatinine 1.0 mg/dL (0.6-1.2) 11/09/21 02:21 Estimated GFR > 60 ml/min 11/09/21 02:21 BUN/Creatinine Ratio 21 % 11/09/21 02:21 Glucose 149 mg/dL (65-100) H 11/09/21 02:21 POC Glucose 121 mg/dL (70-105) H 11/09/21 08:02 Calcium 9.6 mg/dL (8.4-10.2) 11/09/21 02:21 Total Bilirubin 0.20 mg/dL (0.1-1.2) 11/09/21 02:21 AST 17 units/L (5-40) 11/09/21 02:21 ALT 15 units/L (7-56) 11/09/21 02:21 Alkaline Phosphatase 77 units/L (35-129) 11/09/21 02:21 Troponin T < 0.010 ng/mL (0.00-0.029) 11/08/21 16:21 NT-Pro-B Natriuret Pep 83.85 pg/mL (0-900) 11/08/21 11:34 Total Protein 7.2 g/dL (6.3-8.2) 11/09/21 02:21 Albumin 3.8 g/dL (3.9-5) L 11/09/21 02:21 Albumin/Globulin Ratio 1.1 % 11/09/21 02:21 Mehta/IV: Voiding Method External Female Catheter Active Medications - Current Medications Current Medications: Generic Name Dose Route Start Last Admin Trade Name Freq PRN Reason Stop Dose Admin Acetaminophen 650 mg 11/08/21 17:17 Acetaminophen 325 Mg Tab PO Q4H PRN Pain MILD(1-3)/Fever >100.5/CURTIS Heparin Sodium (Porcine) 3,100 unit 11/08/21 17:20 Heparin 10,000 Units/10 Ml Vial 40 unit/kg (3100 unit) IV Q6H PRN Anti-Xa Assay < 0.1 units/ml Hydromorphone HCl 0.5 mg 11/08/21 17:17 Hydromorphone 1 Mg/1 Ml Inj IV Q3H PRN Pain , Severe (7-10) Sodium Chloride 1,000 mls @ 100 mls/hr 11/08/21 17:30 11/10/21 02:50 Nacl 0.9% 1000 Ml IV 100 mls/hr DIRECT EULA Administration Heparin Sodium/Sodium Chloride 25,000 unit in 500 mls @ 23 mls/hr 11/08/21 18:00 11/09/21 22:46 Heparin/ 0.45% Nacl-25,000 Unit/500 Ml IV 1,000 units/hr TITR EULA 20 mls/hr Administration Protocol 1,150 UNITS/HR Metoclopramide HCl 10 mg 11/08/21 17:17 Metoclopramide 10 Mg/2 Ml Inj IV Q6H PRN Nausea And Vomiting Morphine Sulfate 2 mg 11/08/21 17:17 Morphine 2 Mg/1 Ml Inj IV Q4H PRN Pain, Moderate (4-6) Ondansetron HCl 4 mg 11/08/21 17:17 Ondansetron 4 Mg/2 Ml Inj IV Q8H PRN Nausea And Vomiting Oxycodone/Acetaminophen 1 tab 11/08/21 17:17 11/09/21 21:56 Oxycodone /Acetaminophen 5-325mg Tab PO 1 tab Q6H PRN Administration Pain, Moderate (4-6) Sodium Chloride 10 ml 11/08/21 22:00 11/10/21 02:51 Sodium Chloride 0.9% 10 Ml Flush Syringe IV 10 ml BID EULA Administration Sodium Chloride 10 ml 11/08/21 17:17 Sodium Chloride 0.9% 10 Ml Flush Syringe IV PRN PRN LINE FLUSH
--- NOTE | 2021-11-10 12:42 | Consultation ---
History of Present Illness - Reason for Consult Consult date: 11/10/21 PE, DVT Requesting physician: MEGHAN BROWN - History of Present Illness 76-year-old -Thai female with history of hypertension, limited Georgian was recently traveling from [facility] 1 week ago. Patient is present with significant dyspnea and weakness when climbing stairs. Patient also has mild chest pain. Patient also having lower extremity discomfort. Patient had a negative Covid test prior to travel. Patient was sitting for long hours from [facility] to [place]. No previous history of pulmonary embolism or DVT. Vascular consulted for pulmonary embolism. Discussed with daughter at bedside who provided translation with mother. She is currently without shortness of breath or chest pain. She has no lower extremity discomfort at this time. She has chronic left leg swelling which has been occurring for greater than 1 year. Reviewed ultrasound which demonstrated likely acute popliteal vein thrombus, but chronic left common femoral vein thrombus as the left common femoral vein thrombus was quite echogenic. This is consistent with a history of left leg swelling for greater than 1 year. Patient likely had thromboembolic event due to traveling. Given underlying left common femoral vein thrombus, may need prophylactic anticoagulation for life after acute anticoagulation treatment. History of ulcers of the left leg. In [place], they do not ultrasound legs for blood clots per her daughter, so history is limited. Past Medical History Previous Medical History?: Yes Hypertension: Yes Surgical History Past Surgical History?: No Social History Smoking Status: Never Smoker Substance Use Type: Prescribed Family history HTN ROS: Constitutional no weight loss or weight gain no fever or chills HEENT no sore throat no post nasal drip no diplopia Neck no neck stiffness no lymph gland enlargement CVS no chest pain no diaphoresis no palpitations GI no nausea no vomiting no diarrhea Genitourinary system no dysuria no flank pain Musculoskeletal within normal limits. Cardiovascular within normal limits. Pulmonary within normal limits. MANAGER DISCOVERY no syncope no seizures Skin no rash no itching Psychiatric no depression no homicidal or suicidal tendencies Hematologic no lymphedema or bruising Endocrine no polydipsia no polyuria no cold intolerance no heat intolerance Medications and Allergies Allergies Allergy/AdvReac Type Severity Reaction Status Date / Time No Known Allergies Allergy Unverified 11/08/21 10:10 Active Meds: Active Medications Acetaminophen (Acetaminophen 325 Mg Tab) 650 mg PO Q4H PRN PRN Reason: Pain MILD(1-3)/Fever >100.5/CURTIS Heparin Sodium (Porcine) (Heparin 10,000 Units/10 Ml Vial) 3,100 unit 40 unit/kg (3100 unit) IV Q6H PRN PRN Reason: Anti-Xa Assay < 0.1 units/ml Hydromorphone HCl (Hydromorphone 1 Mg/1 Ml Inj) 0.5 mg IV Q3H PRN PRN Reason: Pain , Severe (7-10) Sodium Chloride (Nacl 0.9% 1000 Ml) 1,000 mls @ 100 mls/hr IV DIRECT EULA Last Admin: 11/10/21 02:50 Dose: 100 mls/hr Heparin Sodium/Sodium Chloride (Heparin/ 0.45% Nacl-25,000 Unit/500 Ml) 25,000 unit in 500 mls @ 23 mls/hr IV TITR EULA; Protocol Last Admin: 11/09/21 22:46 Dose: 1,000 units/hr, 20 mls/hr Metoclopramide HCl (Metoclopramide 10 Mg/2 Ml Inj) 10 mg IV Q6H PRN PRN Reason: Nausea And Vomiting Morphine Sulfate (Morphine 2 Mg/1 Ml Inj) 2 mg IV Q4H PRN PRN Reason: Pain, Moderate (4-6) Ondansetron HCl (Ondansetron 4 Mg/2 Ml Inj) 4 mg IV Q8H PRN PRN Reason: Nausea And Vomiting Oxycodone/Acetaminophen (Oxycodone /Acetaminophen 5-325mg Tab) 1 tab PO Q6H PRN PRN Reason: Pain, Moderate (4-6) Last Admin: 11/09/21 21:56 Dose: 1 tab Sodium Chloride (Sodium Chloride 0.9% 10 Ml Flush Syringe) 10 ml IV BID [facility] Last Admin: 11/10/21 10:15 Dose: 10 ml Sodium Chloride (Sodium Chloride 0.9% 10 Ml Flush Syringe) 10 ml IV PRN PRN PRN Reason: LINE FLUSH Exam - Constitutional Vitals: Temp Pulse Resp BP Pulse Ox 98.3 F 67 16 152/86 98 11/10/21 08:22 11/10/21 09:00 11/10/21 08:22 11/10/21 08:22 11/10/21 11:50 General appearance: Present: no acute distress - EENT Eyes: Present: EOM intact ENT: hearing intact - Neck Neck: Present: supple - Respiratory Respiratory effort: normal - Extremities Extremities: normal temperature, normal color Extremity abnormal: edema (2+ left lower extremity edema, chronic per family) Peripheral Pulses: within normal limits (Palpable pedal pulse) - Abdominal General gastrointestinal: Present: soft, non-tender - Psychiatric Psychiatric: appropriate mood/affect, cooperative Results - Labs CBC & Chem 7: 11/10/21 04:45 11/09/21 02:21 Assessment and Plan 76-year-old female who presents with thromboembolic events. The pulmonary artery thrombus burden is low, troponin and BNP are negative. No need for pulmonary artery intervention. Patient is on room air and doing well. Patient has bilateral lower extremity DVTs with history of chronic left lower extremity swelling and sonography findings compatible with left chronic common femoral vein thrombus with more acute popliteal vein thrombosis. Recommend anticoagulation for at least 3 months, and afterwards likely prophylactic anticoagulation for life. Recommend transition from heparin to DOAC. JILLIAN hose for per comfort as needed.
[2021-11-10] MEDS: HEPARIN/ 0.45% NACL DRIP 25,000 UNIT/500 ML BAG IV SCH (22:13)
[2021-11-11] MEDS: SODIUM CHLORIDE 0.9% 1000 ML 1,000 ML IV SCH (05:00)
[2021-11-11] MEDS: APIXABAN 5 MG TAB PO SCH ×2 (10:47→21:11)
[2021-11-11 11:00] LABS: INR 0.95 (0.87-1.13)
[2021-11-11 11:19] LABS: Partial Thromboplastin Time 70.4 Sec. (24.2-36.6)
[2021-11-11 15:55] LABS: Hematocrit 34.9 % (30.3-42.9); Hemoglobin 11.3 gm/dl (10.1-14.3); Mean Corpuscular HGB Conc 32 % (30-34); Mean Corpuscular Volume 83 fl (79-97); Platelet Count 228 K/mm3 (140-440); Red Blood Count 4.23 M/mm3 (3.65-5.03); Red Cell Distribution Width 14.7 % (13.2-15.2)
--- NOTE | 2021-11-11 20:21 | Progress Note ---
Assessment and Plan Assessment and plan: Bilateral lower extremity venous Doppler ;right popliteal vein nonocclusive DVT left popliteal vein nonocclusive DVT thrombosis is noted in the upper portion of the greater saphenous vein near the common femoral vein junction impression bilateral DVT Chest CTA; Findings filling defect in the distal left lower lung pulmonary arteries, axial image 69. Additional filling defects within the branches of the right main pulmonary artery into the right middle lobe. Severe filling defects in segmental periphery of the right lower lung pulmonary arteries. Mild increased interstitial prominence and densities in bilateral lungs. No focal area of disc consolidation., Right ventricular drain was not mentioned by the radiology. Final impression: Bilateral PEs -- Pulmonary embolism, bilateral Current Visit: Yes Status: Acute Bilateral pulmonary embolism involving peripheral pulmonary branches. No main pulmonary artery involvement Vascular evaluated the patient, no intervention at this point Continue IV heparin per ,, transition to Eliquis when medically stable Patient has no hypoxia, follow echocardiogram for LV and RV function ejection fraction --Bilateral lower extremity DVT: Current Visit: Yes Status: Acute Bilateral lower extremity DVT especially in upper saphenous vein region near the femoral vein Continue IV heparin per protocol, transition to Eliquis when patient is more stable Vascular evaluated the patient, no intervention at this point ==Elevated d-dimer; Current Visit: Yes Status: Acute D-dimer in 7000/bilateral PE bilateral DVT -- Hypertension Current Visit: Yes Status: Chronic Continue antihypertensives and adjust medications as necessary --DVT prophylaxis Current Visit: Yes Status: Acute Patient is already on heparin drip and GI prophylaxis --Advance care planning Current Visit: Yes Status: Acute Plan to address problem: Discussed with daughter was at the bedside 11/08/2021 /about disease education care plan plan discussed. Diagnosis discussed. Prognosis discussed. Patient is full code. Patient acknowledges understanding and agreement with care plan along with the daughter. +30 minutes. We will closely monitor the patient and adjust management as needed Plan of care reviewed with the patient and her nurse Title Closer recommendations noted and appreciated Brief history and daily hospital course: 76-year-old female patient with significant past medical history of hypertension not on any medications was recently traveling 1 week ago was admitted through emergency room with worsening shortness of breath weakness while climbing the stairs as well as mild chest discomfort and pain patient was initially evaluated in the ED Noted to have bilateral PE and left lower extremity DVT patient was started on heparin drip, evaluated by vascular , no intervention needed , I transitioned to Eliquis today. Disposition; DC on Eliquis in 1 to 2 days if stable . History Interval history: I have seen and examined the patient at the bedside Patient's chart and medications reviewed No new events reported by the nursing staff Patient has no new complaints Vital signs reviewed Hospitalist Physical - Constitutional Vitals: Temp Pulse Resp BP Pulse Ox 98.4 F 69 12 136/66 98 11/11/21 19:15 11/11/21 19:15 11/11/21 19:15 11/11/21 19:15 11/11/21 19:15 General appearance: Present: no acute distress, well-nourished - EENT Eyes: Present: PERRL, EOM intact - Neck Neck: Present: supple, normal ROM - Respiratory Respiratory effort: normal Respiratory: bilateral: diminished, rhonchi, negative: rales, wheezing - Cardiovascular Rhythm: regular Heart Sounds: Present: S1 & S2 - Extremities Extremities: no ischemia Extremity abnormal: edema (Trace) - Abdominal General gastrointestinal: soft, non-tender, non-distended, normal bowel sounds - Integumentary Integumentary: Present: clear, warm - Psychiatric Psychiatric: appropriate mood/affect, cooperative - Neurologic Neurologic: CNII-XII intact, moves all extremities HEART Score - HEART Score Age: > 65 Risk factors: 1-2 risk factors Troponin: Troponin T < 0.010 ng/mL (0.00-0.029) 11/08/21 16:21 Troponin: < normal limit - Critical Actions Critical Actions: 0-3 pts:0.9-1.7%risk of adverse cardiac event.Candidate for discharge Results - Labs CBC & Chem 7: 11/11/21 15:04 11/11/21 15:04 Labs: Laboratory Last Values WBC 4.2 K/mm3 (4.5-11.0) L 11/11/21 15:04 RBC 4.23 M/mm3 (3.65-5.03) 11/11/21 15:04 Hgb 11.3 gm/dl (10.1-14.3) 11/11/21 15:04 Hct 34.9 % (30.3-42.9) 11/11/21 15:04 MCV 83 fl (79-97) 11/11/21 15:04 MCH 27 pg (28-32) L 11/11/21 15:04 MCHC 32 % (30-34) 11/11/21 15:04 RDW 14.7 % (13.2-15.2) 11/11/21 15:04 Plt Count 228 K/mm3 (140-440) 11/11/21 15:04 Lymph % (Auto) 44.4 % (13.4-35.0) H 11/09/21 02:21 Navarro % (Auto) 11.5 % (0.0-7.3) H 11/09/21 02:21 Eos % (Auto) 2.6 % (0.0-4.3) 11/09/21 02:21 Baso % (Auto) 1.1 % (0.0-1.8) 11/09/21 02:21 Lymph # (Auto) 2.8 K/mm3 (1.2-5.4) 11/09/21 02:21 Navarro # (Auto) 0.7 K/mm3 (0.0-0.8) 11/09/21 02:21 Eos # (Auto) 0.2 K/mm3 (0.0-0.4) 11/09/21 02:21 Baso # (Auto) 0.1 K/mm3 (0.0-0.1) 11/09/21 02:21 Seg Neutrophils % 40.4 % (40.0-70.0) 11/09/21 02:21 Seg Neutrophils # 2.6 K/mm3 (1.8-7.7) 11/09/21 02:21 PT 13.7 Sec. (12.2-14.9) 11/11/21 10:21 INR 0.95 (0.87-1.13) 11/11/21 10:21 APTT 70.4 Sec. (24.2-36.6) H* 11/11/21 10:21 D-Dimer 7876.52 ng/mlDDU (0-234) H 11/08/21 11:34 Heparin Anti-Xa Level 0.43 U.I./ml (0.3-0.7) 11/11/21 10:21 Sodium 138 mmol/L (137-145) 11/09/21 02:21 Potassium 4.5 mmol/L (3.6-5.0) 11/09/21 02:21 Chloride 101.1 mmol/L (98-107) 11/09/21 02:21 Carbon Dioxide 23 mmol/L (22-30) 11/09/21 02:21 Anion Gap 18 mmol/L 11/09/21 02:21 BUN 21 mg/dL (7-17) H 11/09/21 02:21 Creatinine 1.0 mg/dL (0.6-1.2) 11/11/21 15:04 Estimated GFR > 60 ml/min 11/11/21 15:04 BUN/Creatinine Ratio 21 % 11/09/21 02:21 Glucose 149 mg/dL (65-100) H 11/09/21 02:21 POC Glucose 121 mg/dL (70-105) H 11/09/21 08:02 Calcium 9.6 mg/dL (8.4-10.2) 11/09/21 02:21 Total Bilirubin 0.20 mg/dL (0.1-1.2) 11/09/21 02:21 AST 17 units/L (5-40) 11/09/21 02:21 ALT 15 units/L (7-56) 11/09/21 02:21 Alkaline Phosphatase 77 units/L (35-129) 11/09/21 02:21 Troponin T < 0.010 ng/mL (0.00-0.029) 11/08/21 16:21 NT-Pro-B Natriuret Pep 83.85 pg/mL (0-900) 11/08/21 11:34 Total Protein 7.2 g/dL (6.3-8.2) 11/09/21 02:21 Albumin 3.8 g/dL (3.9-5) L 11/09/21 02:21 Albumin/Globulin Ratio 1.1 % 11/09/21 02:21 Mehta/IV: Voiding Method External Female Catheter Active Medications - Current Medications Current Medications: Generic Name Dose Route Start Last Admin Trade Name Freq PRN Reason Stop Dose Admin Acetaminophen 650 mg 11/08/21 17:17 Acetaminophen 325 Mg Tab PO Q4H PRN Pain MILD(1-3)/Fever >100.5/CURTIS Apixaban 10 mg 11/11/21 11:00 11/11/21 10:47 Apixaban 5 Mg Tab PO 11/17/21 22:01 10 mg Q12HR EULA Administration Protocol Apixaban 5 mg 11/18/21 10:00 Apixaban 5 Mg Tab PO Q12HR EULA Protocol Hydromorphone HCl 0.5 mg 11/08/21 17:17 Hydromorphone 1 Mg/1 Ml Inj IV Q3H PRN Pain , Severe (7-10) Sodium Chloride 1,000 mls @ 100 mls/hr 11/08/21 17:30 11/11/21 05:00 Nacl 0.9% 1000 Ml IV 100 mls/hr DIRECT EULA Administration Metoclopramide HCl 10 mg 11/08/21 17:17 Metoclopramide 10 Mg/2 Ml Inj IV Q6H PRN Nausea And Vomiting Morphine Sulfate 2 mg 11/08/21 17:17 Morphine 2 Mg/1 Ml Inj IV Q4H PRN Pain, Moderate (4-6) Ondansetron HCl 4 mg 11/08/21 17:17 Ondansetron 4 Mg/2 Ml Inj IV Q8H PRN Nausea And Vomiting Oxycodone/Acetaminophen 1 tab 11/08/21 17:17 11/09/21 21:56 Oxycodone /Acetaminophen 5-325mg Tab PO 1 tab Q6H PRN Administration Pain, Moderate (4-6) Sodium Chloride 10 ml 11/08/21 22:00 11/11/21 10:47 Sodium Chloride 0.9% 10 Ml Flush Syringe IV 10 ml BID EULA Administration Sodium Chloride 10 ml 11/08/21 17:17 Sodium Chloride 0.9% 10 Ml Flush Syringe IV PRN PRN LINE FLUSH
[2021-11-12 06:14] LABS: Hematocrit 32.1 % (30.3-42.9); Hemoglobin 10.5 gm/dl (10.1-14.3)
[2021-11-12] MEDS: APIXABAN 5 MG TAB PO SCH (09:26)
[2021-11-12 12:29] VITALS: BP 136/73
--- NOTE | 2021-11-12 13:23 | Discharge Summary ---
Providers - Providers Date of Admission: 11/08/21 17:17 Date of discharge: 11/12/21 Attending physician: CAMRON MALLORY 11/08/21 17:17 Consult to Physician [CONS] Routine Comment: Consulting Provider: WILLIE NUNEZ Physician Instructions: Reason For Exam: Bilateral pulmonary embolism Primary care physician: [employer] Hospitalization Condition: Stable Pertinent studies: Bilateral lower extremity venous Doppler ;right popliteal vein nonocclusive DVT left popliteal vein nonocclusive DVT thrombosis is noted in the upper portion of the greater saphenous vein near the common femoral vein junction impression bilateral DVT Chest CTA; Findings filling defect in the distal left lower lung pulmonary arteries, axial image 69. Additional filling defects within the branches of the right main pulmonary artery into the right middle lobe. Severe filling defects in segmental periphery of the right lower lung pulmonary arteries. Mild increased interstitial prominence and densities in bilateral lungs. No focal area of disc consolidation., Right ventricular drain was not mentioned by the radiology. Final impression: Bilateral PEs Hospital course: 76-year-old female patient with significant past medical history of hypertension not on any medications was recently traveling 1 week ago was admitted through emergency room with worsening shortness of breath weakness while climbing the stairs as well as mild chest discomfort and pain. patient was initially evaluated in the ED, Noted to have bilateral PE and left lower extremity DVT. patient was started on heparin drip, evaluated by vascular , no intervention needed , then transitioned to Eliquis. Patient was then discharged home in stable condition with outpatient follow-up. Disposition: 01 HOME / SELF CARE / HOMELESS Final Discharge Diagnosis (Prints w/discharge instructions): -- Pulmonary embolism, bilateral. --Bilateral lower extremity DVT: -- Hypertension Time spent for discharge: 34 minutes Core Measure Documentation - Palliative Care Palliative Care/ Comfort Measures: Not Applicable - Core Measures Any of the following diagnoses?: none Exam - Physical Exam Narrative exam: General appearance: Present: no acute distress, well-nourished - EENT Eyes: Present: PERRL, EOM intact - Neck Neck: Present: supple, normal ROM - Respiratory Respiratory effort: normal Respiratory: bilateral: diminished, rhonchi, negative: rales, wheezing - Cardiovascular Rhythm: regular Heart Sounds: Present: S1 & S2 - Extremities Extremities: no ischemia Extremity abnormal: edema (Trace) - Abdominal General gastrointestinal: soft, non-tender, non-distended, normal bowel sounds - Integumentary Integumentary: Present: clear, warm - Psychiatric Psychiatric: appropriate mood/affect, cooperative - Neurologic Neurologic: CNII-XII intact, moves all extremities - Constitutional Vitals: Temp Pulse Resp BP Pulse Ox 98.7 F 76 18 136/73 97 11/12/21 08:00 11/12/21 08:00 11/12/21 08:00 11/12/21 08:00 11/12/21 08:00 Plan Activity: advance as tolerated Weight Bearing Status: Weight Bear as Tolerated Diet: low fat, low salt Additional Instructions: Take Eliquis 10 mg twice daily for 1 week then 5mg twice daily until discontinued by PCP. Follow up with: PRIMARY CARE, [Primary Care Provider] - 3-5 Days MEGHAN BROWN MD [Staff Physician] - 7 Days Prescriptions: Apixaban [Eliquis] 5 mg PO Q12HR #60 tablet
[2021-11-18] MEDS ORDERED: APIXABAN 5 MG TAB PO SCH (10:00)
== END 2021-11-12 14:00 | disposition home health service (06) | DRG 299 ==
LOC: ED 09:59 → 4A 17:17
PROVIDERS: ADMIT Internal Medicine; ATTEND Internal Medicine
DX: I82.413 Acute embolism and thrombosis of femoral vein, bilateral (principal); I26.99 Other pulmonary embolism without acute cor pulmonale; I10 Essential (primary) hypertension
CPT/HCPCS: 36415; 71046; 71275; 80053; 82565; 82962; 83880; 84484; 85014; 85018; 85025; 85027; 85049; 85379; 85520; 85610; 85730; 93005; 93306; 93970; G0378; J3490; Q0162; C8929; J1644; J1650; J7030; Q9967